=== PATIENT | female | born 1995 | race Caucasian/White ===

== ENCOUNTER 2021-07-25 15:17 | Inpatient (IN) | payer OTHER ==
[~2021-07-25] VITALS: Ht 167.6 cm; Wt 49.8 kg
[2021-07-25] MEDS ORDERED: SODIUM CHLORIDE FLUSH 10ML SYR IVF ONE (15:30)
[2021-07-25] MEDS ORDERED: SODIUM CHLORIDE 0.9% 1,000ML IVBOLUS ONE ×2 (15:30→16:30)
[2021-07-25 16:07] VITALS: BP 88/50
[2021-07-25 16:12] LABS: MEAN CORPUSCULAR HEMOGLOBIN 27.1 pg (27.0-34.8); MEAN CORPUSCULAR HGB CONC 33.3 g/dL (32.4-35.8); MEAN PLATELET VOLUME 9.5 fL (7.4-10.4); PLATELET COUNT 551 x10^3/uL (130-400); RED BLOOD COUNT 3.61 x10^6/uL (3.82-5.3); RED CELL DISTRIBUTION WIDTH 13.9 % (9.6-15.2)
--- NOTE | 2021-07-25 16:12 | NUR ---
AT PT'S BEDSIDE FOR ASSESSMENT. PT IS TACHYCARDIC, HYPOTENSIVE, ROLLING IN BED IN PAIN. PT STATES DIFFUSE ABD PAIN THAT RADIATES TO BILAT FLANK AREA. PT STATES BILAT SALSPINGECTOMY 07/15/21. STATES PAIN SINCE SURGERY, STATES WORSE THIS AM. PT IS PALE, COOL, DIAPHORETIC. SECOND IV STARTED. ERMD DR. GOMEZ AT BEDSIDE. PT TO MOVE TO TRAUMA 3.
[2021-07-25 16:19] LABS: ALANINE AMINOTRANSFERASE 21 U/L (12-78); ANION GAP 22 mmol/L (5-15); CALCIUM 8.9 mg/dL (8.5-10.1); CHLORIDE 93 mmol/L (98-107)
--- NOTE | 2021-07-25 16:20 | NUR ---
REPORT TO ELOISA BUENO.
[2021-07-25 16:22] LABS: ALKALINE PHOSPHATASE 131 U/L (45-117); BILIRUBIN,TOTAL 7.8 mg/dL (0.2-1.0); TOTAL PROTEIN 6.4 g/dL (6.4-8.2)
[2021-07-25] MEDS ORDERED: KETAMINE 10 MG/ML, 20ML ONE (16:25)
[2021-07-25 16:40] LABS: BAND#(MANUAL) 3.08 x10^3/uL; BANDS%(MANUAL) 18 % (0-7); LYMPH#(MANUAL) 1.54 x10^3/uL (1-3.4); LYMPHS% (MANUAL) 9 % (22-44); MONOS#(MANUAL) 3.42 x10^3/uL (0.3-2.7); MONOS% (MANUAL) 20 % (2-9); SEG#(MANUAL) 9.06 x10^3/uL (1.8-6.8); SEGS% (MANUAL) 53 % (42-75)
[2021-07-25 16:42] LABS: ANISOCYTOSIS 1+; POLYCHROMASIA 1+
[2021-07-25 16:44] LABS: ECHINOCYTES 2+
[2021-07-25 16:47] LABS: ACANTHOCYTES 1+
[2021-07-25 16:48] LABS: <PLATELET ESTIMATE> INCREASED; <PLT MORPHOLOGY> NORMAL PLT MORPH; TOXIC GRAN 1+
[2021-07-25 17:17] LABS: FREE T4 (FREE THYROXINE) 4.61 ng/dL (0.76-1.46)
[2021-07-25] MEDS ORDERED: FENTANYL PF 250 MCG/5ML ONE (17:18)
[2021-07-25] MEDS ORDERED: DEXAMETHASONE 4 MG/ML, 5ML ONE (17:23)
[2021-07-25] MEDS ORDERED: BUPIVACAINE/PF 0.5% ONE (17:24)
[2021-07-25] MEDS ORDERED: EPINEPHRINE 1 MG/ML, 1ML ONE ×2 (17:24→18:53)
--- NOTE | 2021-07-25 17:30 | NUR ---
LATE ENTRY FOR EVENTS 1620 - 1730 PT MOVED TO TRAUMA 3 AT 1620, BP 70/PALP, HR 135. PT CRYING OUT WITH C/O ABD PAIN, ORDER REC'D FOR KETAMINE AND PT MED NOTED WITH EFFECT. ADDITIONAL KETAMINE GIVEN NOTED. 1LITER NS INFUSING ON PRESSURE BAG. 2 UNITS UNMATCHED BLOOD REC'D AND VERIFIED WITH 2 RN'S. 1ST UNIT STARTED W/O DIFFICULTY. DR. GOMEZ AT BEDSIDE AND RIGHT IJ TLC INSERTED W/O DIFFICULTY. 1ST UNIT OF BLD INFUSED W/O DIFFICULTY AND 2ND UNIT STARTED ON PRESSURE BAG. NS LITER INFUSED. BP CONTINUES AT 70/PALP AND HR 120'S. PT AWAKE AND AWARE ON TRANSFER. SBAR RPT TO QUANTITATIVE EQUITY HEAD AND TRI COLOR FORM COMPLETED. 1730 PT TO OR WITH RN AND TECH TRANSPORT, 2ND UNIT OF BLOOD INFUSING ON TRANSPORT. MOTHER TO OR WAITING WITH PATIENT.
[2021-07-25] MEDS ORDERED: METRONIDAZOLE PMX 500MG/100ML 100 ML ONE (17:53)
[2021-07-25] MEDS ORDERED: CEFTRIAXONE 1,000 MG ONE (17:53)
[2021-07-25] MEDS ORDERED: KETAMINE 10 MG/ML, 20ML IV ONE ×3 (17:56→17:57)
[2021-07-25] MEDS ORDERED: CALCIUM CHLORIDE 10%, 10ML SYR ONE (18:34)
[2021-07-25] MEDS ORDERED: MIDAZOLAM 1 MG/ML, 5ML ONE (18:40)
[2021-07-25] MEDS ORDERED: PROPOFOL 10 MG/ML, 20ML ONE (18:52)
[2021-07-25] MEDS ORDERED: ROCURONIUM 10MG/ML,5ML ONE (18:53)
[2021-07-25] MEDS ORDERED: VASOPRESSIN 20 UNIT/ML, 1ML ONE (18:53)
[2021-07-25] MEDS ORDERED: PHENYLEPHRINE 10 MG/ML ONE (18:53)
[2021-07-25] MEDS ORDERED: PROPOFOL 100 ML IV ONE (19:26)
[2021-07-25] MEDS ORDERED: PHARMACY MAY ADJ FOR RENAL FX MC SCH (19:30)
[2021-07-25] MEDS ORDERED: SENNA 176 MG/5 ML ORAL SOL NG PRN (19:30)
[2021-07-25] MEDS ORDERED: DEXTROSE 4 GM TAB.CHEW PO PRN (19:30)
[2021-07-25] MEDS ORDERED: GLUCAGON 1 MG IM PRN (19:30)
[2021-07-25] MEDS ORDERED: DEXTROSE 50%, 50ML SYRINGE IVPush PRN (19:30)
[2021-07-25] MEDS ORDERED: ONDANSETRON 2MG/ML, 2ML IV PRN (19:30)
[2021-07-25] MEDS ORDERED: SENNA/DOCUSATE TABLET NG PRN (19:30)
[2021-07-25] MEDS ORDERED: BISACODYL 10 MG SUPP PR PRN (19:30)
[2021-07-25] MEDS ORDERED: LIDOCAINE-MPF 1%, 2ML ENDO PRN (19:30)
[2021-07-25] MEDS ORDERED: LACTULOSE 20 GM/30 ML UDC NG PRN (19:30)
[2021-07-25] MEDS ORDERED: FENTANYL PF 1,000 MCG in SODIUM CHLORIDE 0.9% 80 ML IV PRN (19:30)
[2021-07-25] MEDS ORDERED: PROPOFOL 100 ML IV PRN (19:30)
[2021-07-25] MEDS ORDERED: SODIUM BICARBONATE 1 MEQ/ML, 50ML VIAL IVPush STA ×2 (19:46→19:49)
[2021-07-25] MEDS ORDERED: SODIUM BICARB 8.4%, 50ML SYRINGE ONE ×2 (19:47→23:43)
[2021-07-25] MEDS ORDERED: SODIUM BICARBONATE 8.4% 150 MEQ in DEXTROSE 5% 1,000 ML IV SCH (20:00)
[2021-07-25] MEDS ORDERED: SODIUM BICARB 8.4%, 50ML SYRINGE IVPush ONE (20:00)
[2021-07-25] MEDS ORDERED: METOPROLOL 1 MG/ML, 5ML IVPush ONE (20:25)
[2021-07-25 20:47] LABS: MEAN CORPUSCULAR HEMOGLOBIN 29.1 pg (27.0-34.8); MEAN CORPUSCULAR HGB CONC 33.8 g/dL (32.4-35.8); MEAN PLATELET VOLUME 9.5 fL (7.4-10.4); PLATELET COUNT 359 x10^3/uL (130-400); RED BLOOD COUNT 5.27 x10^6/uL (3.82-5.3); RED CELL DISTRIBUTION WIDTH 15.7 % (9.6-15.2)
[2021-07-25 20:57] LABS: ALANINE AMINOTRANSFERASE 25 U/L (12-78); ALBUMIN 1.1 g/dL (3.4-5.0); ANION GAP 10 mmol/L (5-15); CALCIUM 9.1 mg/dL (8.5-10.1); CHLORIDE 113 mmol/L (98-107); CREATININE 0.95 mg/dL (0.55-1.02); INTERNATIONAL NORMALIZED RATIO 1.66 (0.93-1.1); PROTHROMBIN TIME 17.3 Seconds (9.6-11.5)
[2021-07-25 21:00] LABS: ALKALINE PHOSPHATASE 99 U/L (45-117); BILIRUBIN,TOTAL 11.2 mg/dL (0.2-1.0); TOTAL PROTEIN 4.4 g/dL (6.4-8.2)
[2021-07-25] MEDS ORDERED: SODIUM CHLORIDE FLUSH 10ML SYR IVF SCH (21:00)
[2021-07-25] MEDS ORDERED: METHIMAZOLE 5 MG TAB PO SCH (21:00)
[2021-07-25 21:57] LABS: FIBRINOGEN > 713 mg/dL (200-340); PARTIAL THROMBOPLASTIN TIME 33 Seconds (25-31); PROTHROMBIN TIME 17.7 Seconds (9.6-11.5); THROMBIN TIME 17.3 Seconds (19.2-23.4)
[2021-07-25] MEDS ORDERED: CLINDAMYCIN PMX 900MG/50ML 50 ML IV SCH (22:00)
[2021-07-25] MEDS ORDERED: VANCOMYCIN PER PHARMACY MC PRN (22:00)
[2021-07-25] MEDS ORDERED: LACTATED RINGERS 1,000 ML IVBOLUS ONE ×2 (22:00→22:30)
[2021-07-25] MEDS ORDERED: PHARMACY MAY ADJ FOR RENAL FX MC PRN (22:00)
[2021-07-25 22:16] LABS: ANISOCYTOSIS 1+; BAND#(MANUAL) 3.86 x10^3/uL; BANDS%(MANUAL) 23 % (0-7); LYMPH#(MANUAL) 1.34 x10^3/uL (1-3.4); LYMPHS% (MANUAL) 8 % (22-44); METAMYELOCYTES# (MANUAL) 0.34 x10^3/uL (0-0); METAMYELOCYTES% (MANUAL) 2 % (0-1); MONOS#(MANUAL) 0.84 x10^3/uL (0.3-2.7); MONOS% (MANUAL) 5 % (2-9); MYELOCYTES# (MANUAL) 0.34 x10^3/uL (0-0); MYELOCYTES% (MANUAL) 2 % (0-0); SEG#(MANUAL) 10.08 x10^3/uL (1.8-6.8); SEGS% (MANUAL) 60 % (42-75)
[2021-07-25 22:17] LABS: ECHINOCYTES 2+
[2021-07-25 22:18] LABS: <PLATELET ESTIMATE> ADEQUATE; ACANTHOCYTES 1+; POLYCHROMASIA 1+; TOXIC GRAN 1+
[2021-07-25 22:19] LABS: LARGE PLATELETS 1+
[2021-07-25] MEDS ORDERED: ACETAMINOPHEN 500 MG TABLET PO/NG PRN (22:30)
[2021-07-25] MEDS ORDERED: HYDROCORTISONE 100 MG INJ. IVPush SCH (22:30)
[2021-07-25] MEDS ORDERED: ARTIFICIAL TEARS OINT 3.5 GM EACHEYE PRN (22:30)
[2021-07-25] MEDS ORDERED: ESMOLOL/NS PMX 250 ML IV PRN (22:30)
[2021-07-25 22:43] LABS: MICROSCOPIC INDICATED
[2021-07-25 22:47] LABS: AMPHETAMINE SCREEN, URINE Negative (Negative); BARBITURATE SCREEN, URINE Negative (Negative); BENZODIAZEPINE SCREEN, URINE Positive (Negative); CANNABINOID SCREEN, URINE Negative (Negative); COCAINE SCREEN, URINE Negative (Negative); METHADONE SCREEN, URINE Negative (Negative); OPIATE SCREEN, URINE Negative (Negative)
[2021-07-25] MEDS ORDERED: PHARMACOKINETIC CONSULTATION MC ONE (23:00)
[2021-07-25] MEDS ORDERED: PHARMACOKINETIC MONITORING MC PRN (23:00)
[2021-07-25] MEDS ORDERED: VANCOMYCIN 1,200 MG in SODIUM CHLORIDE 0.9% 250 ML IV ONE (23:30)
[2021-07-26] MEDS ORDERED: SODIUM BICARBONATE 1 MEQ/ML, 50ML VIAL IVPush ONE
[2021-07-26] MEDS ORDERED: PHENYLEPHRINE 10 MG/ML ONE (00:13)
[2021-07-26] MEDS ORDERED: EPINEPHRINE SYRINGE 0.1 MG/ML, 10ML ONE ×2 (00:17→01:43)
[2021-07-26] MEDS ORDERED: AMIODARONE 50 MG/ML, 3ML ONE (00:17)
[2021-07-26] MEDS ORDERED: CODE BLUE RESPONSE XX ONE (00:17)
[2021-07-26] MEDS ORDERED: PHENYLEPHRINE 50 MG in SODIUM CHLORIDE 0.9% 245 ML IV PRN (00:30)
[2021-07-26] MEDS ORDERED: SODIUM BICARBONATE 8.4% 150 MEQ in DEXTROSE 5% 1,000 ML IV SCH (20:00)
== END 2021-07-26 03:12 | DRG 853 ==
LOC: ED 17:00 → EDIP 17:17 → CCU 19:06
PROVIDERS: ADMIT Internal Medicine; ATTEND Internal Medicine
PROC: 0DJ64ZZ Inspection of Stomach, Percutaneous Endoscopic Approach (ICD-10-PCS; 2021-07-25)
PROC: 0DJW0ZZ Inspection of Peritoneum, Open Approach (ICD-10-PCS; 2021-07-25)
PROC: 5A12012 Performance of Cardiac Output, Single, Manual (ICD-10-PCS; 2021-07-25)
PROC: 30233N1 Transfusion of Nonautologous Red Blood Cells into Peripheral Vein, Percutaneous Approach (ICD-10-PCS; 2021-07-25)
PROC: 5A1935Z Respiratory Ventilation, Less than 24 Consecutive Hours (ICD-10-PCS; 2021-07-25)
PROC: 0BH17EZ Insertion of Endotracheal Airway into Trachea, Via Natural or Artificial Opening (ICD-10-PCS; 2021-07-25)
PROC: 0T9B70Z Drainage of Bladder with Drainage Device, Via Natural or Artificial Opening (ICD-10-PCS; 2021-07-25)
PROC: B543ZZA Ultrasonography of Right Jugular Veins, Guidance (ICD-10-PCS; 2021-07-25)
PROC: 04HK33Z Insertion of Infusion Device into Right Femoral Artery, Percutaneous Approach (ICD-10-PCS; 2021-07-25)
PROC: 02HV33Z Insertion of Infusion Device into Superior Vena Cava, Percutaneous Approach (ICD-10-PCS; principal; 2021-07-25 17:30)
DX: A41.9 Sepsis, unspecified organism (principal); J96.01 Acute respiratory failure with hypoxia; E05.01 Thyrotoxicosis with diffuse goiter with thyrotoxic crisis or storm; J96.02 Acute respiratory failure with hypercapnia; K65.9 Peritonitis, unspecified; K66.1 Hemoperitoneum; R65.21 Severe sepsis with septic shock; D62 Acute posthemorrhagic anemia; E87.1 Hypo-osmolality and hyponatremia; N17.9 Acute kidney failure, unspecified; E86.0 Dehydration; E86.1 Hypovolemia; I46.9 Cardiac arrest, cause unspecified; I49.01 Ventricular fibrillation; E80.6 Other disorders of bilirubin metabolism; R57.8 Other shock; Z90.710 Acquired absence of both cervix and uterus; Z98.51 Tubal ligation status; Z88.0 Allergy status to penicillin
CPT/HCPCS: 36415; 36600; 71045; 76705; 80053; 80307; 81001; 82330; 82803; 82947; 83605; 83690; 83735; 84100; 84132; 84145; 84295; 84439; 84443; 84478; 84481; 84702; 85014; 85018; 85025; 85384; 85610; 85670; 85730; 86850; 86900; 86923; 87015; 87040; 87070; 87075; 87081; 87102; 87116; 87205; 87206; 87635; 92950; 93005; 94002; 96361; 96374; 96375; 99291; G0378; J0171; J0696; J1100; J2250; J2704; J3010; J3370; J7070; J0282; J1720; J2370; J7030; J7050; J7120; P9016